=== PATIENT | male | born 1965 | race African-American/Black ===

== ENCOUNTER 2024-03-20 18:04 | Emergency (ER) | payer OTHER, SELFPAY ==
[2024-03-20 18:15] VITALS: BP 128/91; PULSE 95; RESP 16; TEMP 37.1; O2SAT 100
--- NOTE | 2024-03-20 18:38 | ED_ITS ---
HPI - Female Genitourinary General Chief complaint: Urogenital-Male Stated complaint: TROUBLE URINATING Related Data Home Medications Medication Instructions Recorded Confirmed No Home Medications 03/20/24 03/20/24 Allergies Allergy/AdvReac Type Severity Reaction Status Date / Time No Known Allergies Allergy Verified 03/20/24 18:27 Course Vital Signs Vital signs: Vital Signs Temperature 37.1 C 03/20/24 18:15 Pulse Rate 95 03/20/24 18:15 Respiratory Rate 16 03/20/24 18:15 Blood Pressure 128/91 H 03/20/24 18:15 Pulse Oximetry 100 03/20/24 18:15 Temperature 37.1 C 03/20/24 18:15 Pulse Rate 95 03/20/24 18:15 Respiratory Rate 16 03/20/24 18:15 Blood Pressure 128/91 H 03/20/24 18:15 Pulse Oximetry 100 03/20/24 18:15 Discharge Plan Discharge Prescriptions: No Action No Home Medications Follow-up/Referrals: PHYSICIAN,PRESSURE CONTROL SUPERVISOR [Primary Care Provider] -
--- NOTE | 2024-03-20 18:39 | ED.MALEGU ---
HPI - Male Genitourinary General Chief complaint: Urogenital-Male Stated complaint: TROUBLE URINATING Time Seen by Provider: 03/20/24 18:29 Source: patient, RN notes reviewed and old records reviewed Mode of arrival: ambulatory Limitations: no limitations History of Present Illness HPI Narrative: 58 year old male who presets to express care with complaints of 3 day history of urinary frequency, dribbling,some difficulty starting his stream of urine and some intermittent pain when he starts stream of urine. Patent reports no concern for any STD exposure, denies any drainage from penis, no pain in testicles, no abdominal or back pain. Patient reports that he has 2-3 times per night need to urinate, sometimes more often. Patient reports no fevers, chills or any hematuria. denies any nausea or vomiting or any diarrhea. MD Complaint: other (urinary frequency, difficulty and some discomfort starting stream of urine, nocturia) Onset (ago): day(s) (3) Severity: moderate Related Data Allergies Allergy/AdvReac Type Severity Reaction Status Date / Time No Known Allergies Allergy Verified 03/20/24 18:27 Review of Systems Review of Systems: CONSTITUTIONAL: Denies fever, chills, or sweats. CARDIOVASCULAR: Denies chest pain, palpitations, or edema. RESPIRATORY: Denies cough or dyspnea. GASTROINTESTINAL: Denies abdominal pain, nausea, vomiting, or diarrhea. GENITOURINARY: Reports no dysuria, frequency, dribbling, nocturia, difficulty starting stream. Denies flank pain or hematuria. SKIN: Denies rash or itching. MUSCULOSKELETAL: Denies back pain or myalgia. Denies CVA tenderness NEUROLOGIC: Denies headache All systems reviewed & are unremarkable except as noted in HPI and below [facility] Past Medical History Medical History (Updated 03/21/24 @ 22:39 by Chiquis Gomez NP) Kidney donor donated to brother Family History Family History (Updated 03/21/24 @ 22:32 by Chiquis Gomez NP) Father Malignant neoplasm of prostate Social History Social History (Updated 03/21/24 @ 22:33 by Chiquis Gomez NP) Smoking packs per day: 0.5 Smoking cigarettes per day: 10.0 Years smoked: 20 Smoking pack-years: 10.00 Smoking status: Current every day smoker Tobacco type: cigarettes Alcohol intake: current Alcohol use details: social Substance use type: does not use Living arrangements: with family Gender identity (if verbalized by the patient): Male Comments At time of signature, agree with nursing past medical, surgical, social and family history. There is no relevant family history pertinent to the presenting complaint Exam Narrative: GENERAL: Well-appearing, well-nourished, and in no acute distress. HEAD: Normocephalic, atraumatic. NECK: Supple. no lymphadenopathy CHEST: Clear to auscultation. No respiratory distress.SAO2 100% on room air HEART: Regular rate and rhythm. No murmur heard. Normal peripheral pulses. ABDOMEN: Soft, nontender, nondistended, normal active bowel sounds. No CVA tenderness, complaints of urinary frequency with difficulty and some pain when starting stream for 3 day duration. has nocturia, no hematuria, no testicle pain or any rectal pressure voiced. EXTREMITIES: Normal range of motion. No edema. SKIN: Warm, dry, no rash. NEURO: No focal deficits. Alert and oriented x3. Course Course Emergency Course: Patient is aware of diagnosis, understands and agrees to treatment plan.? Anticipatory guidance given.? Patient agrees to follow-up as directed and is aware of reasons to seek care at the emergency department. Portions of this record may have been created with voice recognition software Level of Care: Express Care Visit Vital Signs Vital signs: Vital Signs Temperature 37.1 C 03/20/24 18:15 Pulse Rate 95 03/20/24 18:15 Respiratory Rate 16 03/20/24 18:15 Blood Pressure 128/91 H 03/20/24 18:15 Pulse Oximetry 100 03/20/24 18:15 Oxygen Delivery Room Air
[2024-03-20 19:07] LABS: EDUAAPPEAR Cloudy; EDUABILI Negative (Negative); EDUABLOOD Negative (Negative); EDUACOLOR1 Dark; EDUAGLUCOSE Negative (Negative); EDUAKETONE Negative (Negative); EDUALEUKO 1+ (Negative); EDUANITRATE Negative (Negative); EDUAPH 5.5; EDUAPROTEIN 1+ (Negative); EDUAUROBILI 0.2
== END 2024-03-20 18:58 | disposition home or self-care (01) ==
PROVIDERS: Emergency Provider Registered Nurse
DX: N39.0 Urinary tract infection, site not specified (principal); N40.1 Benign prostatic hyperplasia with lower urinary tract symptoms; R35.1 Nocturia; F17.210 Nicotine dependence, cigarettes, uncomplicated
CPT/HCPCS: 81003; 87086; 99213; G0463

== ENCOUNTER 2024-05-05 15:37 | Emergency (ER) | payer OTHER, SELFPAY ==
--- NOTE | 2024-05-05 15:42 | ED_ITS ---
HPI - General Adult General Chief complaint: Dental/Oral Stated complaint: Dental Pain Time Seen by Provider: 05/05/24 15:42 Source: patient Mode of arrival: ambulatory Limitations: no limitations History of Present Illness HPI narrative: 58-year-old male patient presents to [facility] with complaints of right- sided dental pain. Patient states he has had a broken tooth for quite a while and is in the process of getting insurance to cover his dentures. Patient states last night started getting some increase in pain to the area and woke up in the middle night with swelling. Patient states this morning he tried to put some ice on the right-sided cheek and did take some ibuprofen and aspirin for pain. Denies fevers that he is aware of. Denies chest pain or shortness of breath. Related Data Allergies Allergy/AdvReac Type Severity Reaction Status Date / Time No Known Allergies Allergy Verified 05/05/24 16:10 Review of Systems Review of Systems: CONSTITUTIONAL: Denies fever, chills, or sweats. EYES: Denies visual changes, redness, or discharge. ENT: Denies rhinorrhea, congestion, sore throat, or otalgia. Positive right- sided dental pain CARDIOVASCULAR: Denies chest pain, palpitations, or edema. RESPIRATORY: Denies cough or dyspnea. GASTROINTESTINAL: Denies abdominal pain, nausea, vomiting, or diarrhea. GENITOURINARY: Denies dysuria or hematuria. SKIN: Denies rash or itching. MUSCULOSKELETAL: Denies back pain, joint pain, or myalgia. NEUROLOGIC: Denies headache, numbness, or weakness. PSYCHIATRIC: Denies anxiety or depression. [facility] Past Medical History Medical History Kidney donor donated to brother Family History Family History Father Malignant neoplasm of prostate Social History Social History Smoking packs per day: 0.5 Smoking cigarettes per day: 10.0 Years smoked: 20 Smoking pack-years: 10.00 Smoking status: Current every day smoker Tobacco type: cigarettes Alcohol intake: current Alcohol use details: social Substance use type: does not use Living arrangements: with family Gender identity (if verbalized by the patient): Male Comments At the time of my signature I agree with nursing past medical history, surgical, social, and family history. There is no relevant family history pertinent to the presenting complaint. Exam Narrative: GENERAL: Well-appearing, well-nourished, and in no acute distress. HEAD: Normocephalic, atraumatic. EYES: PERRLA and EOMI. ENT: Nares clear, no rhinorrhea or epistaxis. Mucous membranes moist. patient does have swelling to the right cheek as compared to left. There is a fractured tooth to the right upper cuspid with surrounding erythema. On palpation of the inner cheek it is very hot to the touch. NECK: Supple. No lymphadenopathy CHEST: Clear to auscultation. No respiratory distress. HEART: Regular rate and rhythm. No murmur heard. Normal peripheral pulses. ABDOMEN: Soft, nontender, nondistended, normal active bowel sounds. EXTREMITIES: Normal range of motion. No edema. SKIN: Warm, dry, no rash. NEURO: No focal deficits. Alert and oriented x3. Course Course Level of Care: Express Care Visit Vital Signs Vital signs: Vital Signs Temperature 36.9 C 05/05/24 16:00 Pulse Rate 97 05/05/24 16:00 Respiratory Rate 16 05/05/24 16:00 Blood Pressure 166/115 H 05/05/24 16:00 Pulse Oximetry 100 05/05/24 16:00 Temperature 36.9 C 05/05/24 16:00 Pulse Rate 97 05/05/24 16:00 Respiratory Rate 16 05/05/24 16:00 Blood Pressure 166/115 H 05/05/24 16:00 Pulse Oximetry 100 05/05/24 16:00 vital signs reviewed. The patient has been informed that they may have pre-hypertension or Hypertension based on a BP reading in the department. I recommend that the patient call the primary care provider listed on their discharge instructions or a physician of their choice this week to arrange follow up for further evaluation of possible pre-hypertension or Hypertension Medical Decision Making MDM Narrative Medical decision making narrative: Plan of care for patient is discharge home with oral antibiotic and pain medication. Offered a Toradol shot in the clinic today however patient states he does not want a shot and will just take the prescription. Dental clinic sheet was provided to him but states he does follow with [facility]. Differential Diagnosis Differential Diagnosis: Differential diagnosis: Dental caries, periodontal disease, avulsed tooth, tooth infections, mandibular infection, Todd's angiana, upper tooth infection, dry socket, gingivitis, acute necrotizing ulcerative gingivitis, sialolithiasis. Vital Signs Vital Signs: Vital Signs Temperature 36.9 C 05/05/24 16:00 Pulse Rate 97 05/05/24 16:00 Respiratory Rate 16 05/05/24 16:00 Blood Pressure 166/115 H 05/05/24 16:00 Pulse Oximetry 100 05/05/24 16:00 Temperature 36.9 C 05/05/24 16:00 Pulse Rate 97 05/05/24 16:00 Respiratory Rate 16 05/05/24 16:00 Blood Pressure 166/115 H 05/05/24 16:00 Pulse Oximetry 100 05/05/24 16:00 Critical Care Time Critical Care Time Critical Care Time: No Discharge Plan Discharge Clinical Impression: Dental abscess, Fracture of tooth Patient Disposition: Home, Self-Care Condition: Stable Instructions: Antibiotic Form, Dental Abscess (ED) Additional Instructions: Antibiotic as directed Avoid temperature extremes May apply heat or ice to the face Gentle brushing and flossing Alternate Tylenol and ibuprofen as needed for pain Follow-up with the dentist as soon as possible--see the list provided Prescriptions: New amoxicillin-pot clavulanate 875-125 mg tablet 1 tablet PO Q12H 10 Days Qty: 20 0RF tramadol 50 mg tablet 50 mg PO Q6H PRN (Reason: pain) 3 Days Qty: 12 0RF Follow-up/Referrals: PHYSICIAN,BINDER FIXER [Primary Care Provider] - Stand Alone Forms: Work/School Release IP Time of Disposition: 16:15
[2024-05-05 16:00] VITALS: BP 166/115; PULSE 97; RESP 16; TEMP 36.9; O2SAT 100
--- NOTE | 2024-05-05 16:22 | PC.NURSE ---
Pt declined toradol injection at this time. Will recheck BP prior to discharge.
[2024-05-05 16:29] VITALS: BP 153/108
== END 2024-05-05 16:30 | disposition home or self-care (01) ==
PROVIDERS: Emergency Provider Nurse Practitioner Family
DX: K04.7 Periapical abscess without sinus (principal); S02.5XXA Fracture of tooth (traumatic), initial encounter for closed fracture; X58.XXXA Exposure to other specified factors, initial encounter; F17.210 Nicotine dependence, cigarettes, uncomplicated
CPT/HCPCS: 99213; G0463